=== PATIENT | female | born 1960 | race Two or more races ===

== ENCOUNTER → 2018-02-08 | Outpatient (CLI) | payer OTHER ==
[~2018-02-08] MED LIST: ADVAIR 2501 DISK W/1; COUMADIN10 MG
== END | disposition home or self-care (01) ==
LOC: TOM 10:40
DX: J45.31 Mild persistent asthma with (acute) exacerbation (principal); R19.11 Absent bowel sounds

== ENCOUNTER 2018-07-24 08:23 | Outpatient (CLI) | payer OTHER | END 2018-07-24 15:22 | disposition home or self-care (01) | LOC: RX STUDY 08:23 | DX: R13.19 Other dysphagia (principal) ==

== ENCOUNTER 2018-10-31 12:28 | Outpatient (CLI) | payer OTHER | END 2018-10-31 12:31 | disposition home or self-care (01) | LOC: RAD 12:28 | DX: R07.89 Other chest pain (principal) ==

== ENCOUNTER → 2019-03-05 | Outpatient (CLI) | payer OTHER | END | disposition home or self-care (01) | LOC: NUCLEAR 07:30 | DX: R22.31 Localized swelling, mass and lump, right upper limb (principal); M79.601 Pain in right arm ==

== ENCOUNTER 2019-06-21 10:09 | Outpatient (CLI) | payer OTHER | END 2019-06-21 11:10 | disposition home or self-care (01) | LOC: SONOGRAMA 10:09 | DX: M77.11 Lateral epicondylitis, right elbow (principal); M77.12 Lateral epicondylitis, left elbow ==

== ENCOUNTER 2019-08-10 08:47 | Outpatient (CLI) | payer OTHER | END 2019-08-10 08:51 | disposition home or self-care (01) | LOC: SONOGRAMA 08:47 | DX: D68.62 Lupus anticoagulant syndrome (principal); D51.1 Vitamin B12 deficiency anemia due to selective vitamin B12 malabsorption with proteinuria; D51.3 Other dietary vitamin B12 deficiency anemia; D51.8 Other vitamin B12 deficiency anemias; I26.99 Other pulmonary embolism without acute cor pulmonale; E55.9 Vitamin D deficiency, unspecified; I73.89 Other specified peripheral vascular diseases; I34.1 Nonrheumatic mitral (valve) prolapse; J45.20 Mild intermittent asthma, uncomplicated; K31.83 Achlorhydria; M81.0 Age-related osteoporosis without current pathological fracture; B02.29 Other postherpetic nervous system involvement; I82.5Z2 Chronic embolism and thrombosis of unspecified deep veins of left distal lower extremity; E06.5 Other chronic thyroiditis; E85.89 Other amyloidosis; I10 Essential (primary) hypertension; K22.10 Ulcer of esophagus without bleeding; E04.2 Nontoxic multinodular goiter ==

== ENCOUNTER 2020-03-25 07:38 | Outpatient (CLI) | payer OTHER | END 2020-03-25 07:48 | disposition home or self-care (01) | LOC: MAMO-SONO 07:38 | PROVIDERS: ATTEND Internal Medicine | DX: Z12.31 Encounter for screening mammogram for malignant neoplasm of breast (principal); Z87.898 Personal history of other specified conditions; N64.4 Mastodynia; N63.10 Unspecified lump in the right breast, unspecified quadrant; N63.20 Unspecified lump in the left breast, unspecified quadrant ==

== ENCOUNTER 2020-09-01 08:41 | Outpatient (CLI) | payer OTHER | END 2020-09-01 08:47 | disposition home or self-care (01) | LOC: RAD 08:41 | PROVIDERS: ATTEND Internal Medicine | DX: R07.89 Other chest pain (principal) ==

== ENCOUNTER 2020-09-01 09:26 | Outpatient (CLI) | payer OTHER | END 2020-09-01 13:18 | disposition home or self-care (01) | LOC: NUCLEAR 09:26 | PROVIDERS: ATTEND Internal Medicine Rheumatology | DX: M81.0 Age-related osteoporosis without current pathological fracture (principal) ==

== ENCOUNTER 2020-11-12 08:31 | Outpatient (CLI) | payer OTHER | END 2020-11-12 08:37 | disposition home or self-care (01) | LOC: SONOGRAMA 08:31 | PROVIDERS: ATTEND Internal Medicine Hematology & Oncology | DX: E04.8 Other specified nontoxic goiter (principal); K22.10 Ulcer of esophagus without bleeding; I10 Essential (primary) hypertension; E06.5 Other chronic thyroiditis; I82.5Z2 Chronic embolism and thrombosis of unspecified deep veins of left distal lower extremity; B02.29 Other postherpetic nervous system involvement; M81.0 Age-related osteoporosis without current pathological fracture; K31.83 Achlorhydria; J45.20 Mild intermittent asthma, uncomplicated; I34.1 Nonrheumatic mitral (valve) prolapse; I73.9 Peripheral vascular disease, unspecified; E55.9 Vitamin D deficiency, unspecified; I26.99 Other pulmonary embolism without acute cor pulmonale; D51.8 Other vitamin B12 deficiency anemias; D51.3 Other dietary vitamin B12 deficiency anemia; D51.1 Vitamin B12 deficiency anemia due to selective vitamin B12 malabsorption with proteinuria; D68.62 Lupus anticoagulant syndrome; E85.89 Other amyloidosis ==

== ENCOUNTER 2021-07-28 14:20 | Outpatient (CLI) | payer OTHER | END 2021-07-28 14:24 | disposition home or self-care (01) | LOC: SONOGRAMA 14:20 | PROVIDERS: ATTEND Internal Medicine Hematology & Oncology | DX: E04.2 Nontoxic multinodular goiter (principal); D68.61 Antiphospholipid syndrome; D51.1 Vitamin B12 deficiency anemia due to selective vitamin B12 malabsorption with proteinuria; D51.3 Other dietary vitamin B12 deficiency anemia; D51.8 Other vitamin B12 deficiency anemias; I26.99 Other pulmonary embolism without acute cor pulmonale; E55.9 Vitamin D deficiency, unspecified; I73.89 Other specified peripheral vascular diseases; I34.1 Nonrheumatic mitral (valve) prolapse; J45.20 Mild intermittent asthma, uncomplicated; K31.83 Achlorhydria; M81.0 Age-related osteoporosis without current pathological fracture; B02.29 Other postherpetic nervous system involvement; I82.5Z2 Chronic embolism and thrombosis of unspecified deep veins of left distal lower extremity; E06.5 Other chronic thyroiditis; E85.89 Other amyloidosis; I10 Essential (primary) hypertension; K22.10 Ulcer of esophagus without bleeding ==

== ENCOUNTER 2021-09-16 10:01 | Outpatient (CLI) | payer OTHER | END 2021-09-16 10:20 | disposition home or self-care (01) | LOC: SONOGRAMA 10:01 | PROVIDERS: ATTEND Internal Medicine | DX: M25.511 Pain in right shoulder (principal) ==

== ENCOUNTER 2022-04-09 12:37 | Outpatient (CLI) | payer OTHER | END 2022-04-09 12:51 | disposition home or self-care (01) | LOC: SONOGRAMA 12:37 | PROVIDERS: ATTEND Internal Medicine | DX: N28.1 Cyst of kidney, acquired (principal) ==

== ENCOUNTER 2022-11-08 12:15 | Outpatient (CLI) | payer OTHER | END 2022-11-08 12:16 | disposition home or self-care (01) | LOC: NUCLEAR 12:15 | PROVIDERS: ATTEND Internal Medicine Hematology & Oncology | DX: R41.9 Unspecified symptoms and signs involving cognitive functions and awareness (principal); R41.3 Other amnesia | CPT/HCPCS: 78803; A9557 ==

== ENCOUNTER 2022-11-29 13:06 | Outpatient (CLI) | payer OTHER | END 2022-11-29 13:16 | disposition home or self-care (01) | LOC: RAD 13:06 | PROVIDERS: ATTEND Internal Medicine Pulmonary Disease | DX: J45.40 Moderate persistent asthma, uncomplicated (principal) ==

== ENCOUNTER 2022-12-16 13:55 | Outpatient (CLI) | payer OTHER | END 2022-12-16 13:59 | disposition home or self-care (01) | LOC: RAD 13:55 | PROVIDERS: ATTEND Internal Medicine | DX: M25.561 Pain in right knee (principal) ==

== ENCOUNTER 2023-02-22 09:49 | Outpatient (CLI) | payer OTHER | END 2023-02-22 09:50 | disposition home or self-care (01) | LOC: NUCLEAR 09:49 | PROVIDERS: ATTEND Internal Medicine Hematology & Oncology | DX: I82.402 Acute embolism and thrombosis of unspecified deep veins of left lower extremity (principal); M79.605 Pain in left leg ==

== ENCOUNTER 2023-02-22 12:37 | Outpatient (CLI) | payer OTHER | END 2023-02-22 12:45 | disposition home or self-care (01) | LOC: RAD 12:37 | PROVIDERS: ATTEND Internal Medicine Hematology & Oncology | DX: M79.605 Pain in left leg (principal) ==

== ENCOUNTER 2023-11-01 12:48 | Outpatient (CLI) | payer OTHER | END 2023-11-01 12:52 | disposition home or self-care (01) | LOC: RAD 12:48 | PROVIDERS: ATTEND Internal Medicine | DX: R05.9 Cough, unspecified (principal); Z88.0 Allergy status to penicillin; Z88.1 Allergy status to other antibiotic agents ==

== ENCOUNTER 2024-03-08 07:12 | Outpatient (CLI) | payer OTHER | END 2024-03-08 07:18 | disposition home or self-care (01) | LOC: RAD 07:12 | PROVIDERS: ATTEND Internal Medicine | DX: M25.552 Pain in left hip (principal) ==

== ENCOUNTER 2024-03-08 09:35 | Outpatient (CLI) | payer OTHER | END 2024-03-08 09:40 | disposition home or self-care (01) | LOC: SONOGRAMA 09:35 | PROVIDERS: ATTEND Pathology Anatomic Pathology & Clinical Pathology | DX: D34 Benign neoplasm of thyroid gland (principal); E07.89 Other specified disorders of thyroid; E06.5 Other chronic thyroiditis ==

== ENCOUNTER 2024-05-17 11:19 | Outpatient (CLI) | payer OTHER | END 2024-05-17 11:28 | disposition home or self-care (01) | LOC: RAD 11:19 | PROVIDERS: ATTEND Internal Medicine Pulmonary Disease | DX: J20.9 Acute bronchitis, unspecified (principal) ==

== ENCOUNTER 2024-07-31 08:14 | Outpatient (CLI) | payer OTHER ==
[2024-07-31 09:28] LABS: HEMATOCRIT 40.4 % (36.0-45.00); HEMOGLOBIN 13.9 g/dL (12.0-15.00); MEAN CELL VOLUME 88.3 fL (80.00-100.00); MEAN CORPUSCULAR HEMOGLOBIN 30.3 pg (27.00-32.0); MEAN CORPUSCULAR HGB CONC 34.3 g/dl (32.0-36.0); PLATELET COUNT 188 K/uL (150-450); RED BLOOD COUNT 4.58 M/uL (4.00-6.00); RED CELL DISTRIBUTION WIDTH 12.5 % (11.5-14.5)
[2024-07-31 10:53] LABS: ALBUMIN 3.5 gm/dL (3.4-5.0); BILIRUBIN TOTAL 0.63 mg/dL (0.3-1.2); CALCIUM 8.8 mg/dL (8.5-10.1); CHOL HDL RATIO 3.8 (0-5.0); CREATININE SERUM 0.71 mg/dL (0.55-1.02); GFR 82.88; POTASSIUM 3.87 mEq/L (3.5-5.1); T4 FREE 1.09 NG/ML (0.76-1.46); TOTAL PROTEIN 6.5 gm/dL (6.4-8.2); TSH 1.67 uIU/mL (0.358-3.74)
[2024-07-31 10:54] LABS: C-REACTIVE PROTEIN 0.35 MG/DL (0.00-0.29)
[2024-08-03 10:06] LABS: HOMOCYSTEINE 11.8 umol/L (0.0-17.2); kappa lambda r 1.75 (0.26-1.65); kappa light 26.8 mg/L (3.3-19.4); lambda light 15.3 mg/L (5.7-26.3)
[2024-08-03 18:05] LABS: alp 0 % (.); alph 2 0 % (.); beta 0 % (.); gam 0 % (.); m spi 0 % (Not Observed); prot 12.7 mg/dL (Not Estab.)
[2024-08-04 08:09] LABS: BETA-2-MICROGLOBULINA 1.7 mg/L (0.6-2.4)
[2024-08-06 02:03] LABS: VITAMIN B6 PLASMA 4.9 ug/L (3.4-65.2)
[2024-08-06 18:05] LABS: IMM A 167 mg/dL (87-352); IMM G 978 mg/dL (586-1602); IMM M 64 mg/dL (26-217); VITAMIN B 1 WHOLE BLOOD 130 nmol/L (66.5-200.0)
[2024-08-06 20:09] LABS: a:g ratio 1.3 (0.7-1.7); alpha 1 g 0.2 g/dL (0.0-0.4); alpha 2 0.6 g/dL (0.4-1.0); gamma g 0.9 g/dL (0.4-1.8); globulin t 2.6 g/dL (2.2-3.9); m spike Not Observed g/dL (Not Observed); prot total 6.1 g/dL (6.0-8.5)
== END 2024-07-31 08:15 | disposition home or self-care (01) ==
LOC: LAB 08:14
PROVIDERS: ATTEND Internal Medicine Hematology & Oncology
DX: D68.62 Lupus anticoagulant syndrome (principal); D51.1 Vitamin B12 deficiency anemia due to selective vitamin B12 malabsorption with proteinuria; D51.3 Other dietary vitamin B12 deficiency anemia; D51.8 Other vitamin B12 deficiency anemias; I26.99 Other pulmonary embolism without acute cor pulmonale; E55.9 Vitamin D deficiency, unspecified; I73.9 Peripheral vascular disease, unspecified; I34.1 Nonrheumatic mitral (valve) prolapse; J45.20 Mild intermittent asthma, uncomplicated; K31.83 Achlorhydria; M81.0 Age-related osteoporosis without current pathological fracture; B02.29 Other postherpetic nervous system involvement; I82.522 Chronic embolism and thrombosis of left iliac vein; E06.5 Other chronic thyroiditis; I10 Essential (primary) hypertension; K22.10 Ulcer of esophagus without bleeding; N63.20 Unspecified lump in the left breast, unspecified quadrant; N63.24 Unspecified lump in the left breast, lower inner quadrant; D47.2 Monoclonal gammopathy; C90.00 Multiple myeloma not having achieved remission; R74.02 Elevation of levels of lactic acid dehydrogenase [LDH]; K76.89 Other specified diseases of liver; R41.89 Other symptoms and signs involving cognitive functions and awareness; R41.3 Other amnesia; G30.1 Alzheimer's disease with late onset; E03.9 Hypothyroidism, unspecified; F03.90 Unspecified dementia, unspecified severity, without behavioral disturbance, psychotic disturbance, mood disturbance, and anxiety

== ENCOUNTER 2025-06-03 08:25 | Outpatient (CLI) | payer OTHER ==
[2025-06-03 09:30] LABS: BASO % 0.5 % (0.1-1.2); EOS # 0.18 (0.04-0.54); EOS % 2.4 % (0.7-7.0); LYMPH # 2.16 (1.18-3.74); LYMPH % 28.4 % (19.3-53.1); MEAN PLATELET VOLUME 9.40 fl (9.4-12.4); MONO # 0.44 (0.24-0.82); MONO % 5.8 % (4.7-12.5); NEUT # 4.77 (1.56-6.13); NEUT % 62.8 % (34.0-71.1); RED CELL DISTRIBUTION WIDTH 12.0 % (11.6-14.4)
[2025-06-03 10:24] LABS: ALT/SGPT 20.0 U/L (12-78); AST/SGOT 11.0 U/L (15-37); BILIRUBIN TOTAL 0.69 mg/dL (0.3-1.2); BUN CREA RATIO 22.0 (7.0-25.0); CREATININE SERUM 0.79 mg/dL (0.55-1.02); GFR 73.04; GLOBULINA 2.7 G/DL (2.4-3.5); GLUCOSE FASTING 92.0 mg/dL (65-100); LDH 156.0 U/L (84-246); OSMOLALITY SERUM 294.0 MOSM/KG (275-295); T4 FREE 1.27 NG/ML (0.76-1.46); TSH 1.24 uIU/mL (0.358-3.74)
[2025-06-05 15:11] LABS: IMM A 162 mg/dL (87-352); IMM G 918 mg/dL (586-1602); IMM M 58 mg/dL (26-217); a:g ratio 1.3 (0.7-1.7); alpha 1 g 0.2 g/dL (0.0-0.4); beta g 0.9 g/dL (0.7-1.3); gamma g 0.7 g/dL (0.4-1.8); globulin t 2.5 g/dL (2.2-3.9); prot total 5.8 g/dL (6.0-8.5)
== END 2025-06-03 08:29 | disposition home or self-care (01) ==
LOC: LAB 08:25
PROVIDERS: ATTEND Internal Medicine Hematology & Oncology
DX: D51.1 Vitamin B12 deficiency anemia due to selective vitamin B12 malabsorption with proteinuria (principal); D51.3 Other dietary vitamin B12 deficiency anemia; D51.8 Other vitamin B12 deficiency anemias; I26.99 Other pulmonary embolism without acute cor pulmonale; E55.9 Vitamin D deficiency, unspecified; I73.9 Peripheral vascular disease, unspecified; I34.1 Nonrheumatic mitral (valve) prolapse; J45.20 Mild intermittent asthma, uncomplicated; K31.83 Achlorhydria; M81.0 Age-related osteoporosis without current pathological fracture; B02.29 Other postherpetic nervous system involvement; I82.522 Chronic embolism and thrombosis of left iliac vein; E06.5 Other chronic thyroiditis; I10 Essential (primary) hypertension; K22.10 Ulcer of esophagus without bleeding; N63.20 Unspecified lump in the left breast, unspecified quadrant; N63.24 Unspecified lump in the left breast, lower inner quadrant; L94.0 Localized scleroderma [morphea]; E85.89 Other amyloidosis; D47.2 Monoclonal gammopathy; C90.00 Multiple myeloma not having achieved remission

== ENCOUNTER 2025-06-07 10:23 | Outpatient (CLI) | payer OTHER | END 2025-06-07 10:24 | disposition home or self-care (01) | LOC: NUCLEAR 10:23 | PROVIDERS: ATTEND Internal Medicine Rheumatology | DX: M81.0 Age-related osteoporosis without current pathological fracture (principal) ==